=== PATIENT | female | born 1980 | race Caucasian/White ===

== ENCOUNTER 2017-06-17 12:33 | Emergency (ER) | payer SELFPAY ==
[~2017-06-17] VITALS: Ht 160 cm; Wt 63.5 kg
[2017-06-17] MEDS ORDERED: MELOXICAM15 MG PO (12:48)
[2017-06-17] MEDS ORDERED: CYMBALTA60 MG PO ×2 (12:48→13:08)
[2017-06-17] MEDS ORDERED: AMITRIPTYLINE H25 MG PO (12:49)
[2017-06-17] MEDS ORDERED: PROPRANOLOL HCL40 MG PO (12:49)
[2017-06-17] MEDS ORDERED: NEURONTIN300 MG PO (12:49)
== END 2017-06-17 13:08 | disposition home or self-care (01) ==
LOC: ED 12:33
DX: Z76.0 Encounter for issue of repeat prescription (principal); F32.9 Major depressive disorder, single episode, unspecified; G43.909 Migraine, unspecified, not intractable, without status migrainosus; Z98.51 Tubal ligation status; Z98.890 Other specified postprocedural states; Z88.8 Allergy status to other drugs, medicaments and biological substances; Z79.899 Other long term (current) drug therapy
CPT/HCPCS: 99281

== ENCOUNTER 2020-08-29 17:17 | Emergency (ER) | payer SELFPAY ==
[~2020-08-29 17:17] MED LIST: AMITRIPTYLINE H25 MG PO; CYMBALTA60 MG PO; MELOXICAM15 MG PO; NEURONTIN300 MG PO; PROPRANOLOL HCL40 MG PO
[2020-08-29] MEDS ORDERED: CEFPODOXIME PR200 MG PO (19:31)
== END 2020-08-29 19:44 | disposition home or self-care (01) ==
LOC: ED 17:17
DX: N12 Tubulo-interstitial nephritis, not specified as acute or chronic (principal); G43.909 Migraine, unspecified, not intractable, without status migrainosus; Z88.8 Allergy status to other drugs, medicaments and biological substances
CPT/HCPCS: 80053; 81001; 84703; 85025; 96365; 96375; 99283-25; J0696; J1885; J7030

== ENCOUNTER 2021-10-11 13:56 | Emergency (ER) | payer OTHER ==
[~2021-10-11] VITALS: Ht 160 cm; Wt 68.5 kg
[~2021-10-11 13:56] MED LIST changes: +CEFPODOXIME PR200 MG PO
== END 2021-10-11 16:50 | disposition home or self-care (01) ==
LOC: ED 13:56
DX: S43.101A Unspecified dislocation of right acromioclavicular joint, initial encounter (principal); G43.909 Migraine, unspecified, not intractable, without status migrainosus; Z88.8 Allergy status to other drugs, medicaments and biological substances; X50.0XXA Overexertion from strenuous movement or load, initial encounter
CPT/HCPCS: 73030; 99283-25; A9270

== ENCOUNTER 2022-11-08 10:46 | Emergency (ER) | payer OTHER ==
[~2022-11-08] VITALS: Ht 160 cm; Wt 68.5 kg
[2022-11-08] MEDS ORDERED: VENTOLIN HFA18 GM INH (11:15)
[2022-11-08 15:17] VITALS: BP 122/83
== END 2022-11-08 15:17 | disposition home or self-care (01) ==
LOC: ED 10:46
DX: G43.909 Migraine, unspecified, not intractable, without status migrainosus (principal); Z88.8 Allergy status to other drugs, medicaments and biological substances; Z91.048 Other nonmedicinal substance allergy status; Z79.899 Other long term (current) drug therapy
CPT/HCPCS: 96361; 96374; 96375; 99283-25; J1200; J1885; J2765; J3030; J7030

== ENCOUNTER 2024-01-29 15:44 | Emergency (ER) | payer OTHER ==
[~2024-01-29] VITALS: Ht 160 cm; Wt 74.8 kg
[~2024-01-29 15:44] MED LIST changes: +VENTOLIN HFA18 GM INH
[2024-01-29 16:11] LABS: BASOPHILS 0.6 % (0-2); EOSINOPHILS 0.7 % (0-6); HEMATOCRIT 39.5 % (35.0-50.0); HEMOGLOBIN 14.1 g/dL (12.0-18.0); LYMPHOCYTES 28.2 % (24-44); MCH 32.7 (27-36); MCHC 35.6 g/dl (30-36); MCV 91.9 fl (81-99); MONOCYTES 13.5 % (0-12); PLATELET COUNT 158 K/uL (140-440); RDW 13.7 (10.5-15.0)
[2024-01-29] MEDS ORDERED: ATENOLOL25 MG PO (16:11)
[2024-01-29] MEDS ORDERED: VITAMIN D21250 MCG PO (16:11)
[2024-01-29] MEDS ORDERED: AMITRIPTYLINE H50 MG PO (16:11)
[2024-01-29 16:33] LABS: ALBUMIN 3.9 g/dL (3.4-5.0); ALKALINE PHOSPHATASE 76 U/L (46-116); ALT (SGPT) 19 U/L (14-59); ANION GAP 12.4 (7-21); AST (SGOT) 14 U/L (15-37); BILIRUBIN, TOTAL 0.4 ng/dL (0.2-1.0); BUN/CREATININE RATIO 16.66 (6.0-28.6); CALCIUM 8.3 mg/dL (8.5-10.1); CARBON DIOXIDE 25 mmol/L (21-32); CHLORIDE 104 mmol/L (98-107); CREATININE, SERUM 0.84 mg/dL (0.55-1.02); GLOMERULAR FILTRATION RATE,EST 87 mL/min (>60); POTASSIUM 3.4 mmol/L (3.5-5.1); PROTEIN, TOTAL 6.9 g/dL (6.4-8.2); UREA NITROGEN 14 mg/dL (7-18)
[2024-01-29 18:40] VITALS: BP 134/95
--- NOTE | 2024-01-30 13:48 | EKG ---
[facility] [address] [place], [place] [address] Signed Normal sinus rhythm Nonspecific ST and T wave abnormality Abnormal ECG No previous ECGs available Confirmed by Priyanka Roth MD ([id number]) on 01/30/2024 1:47:59 PM Electronically Signed By: PRIYANKA ROTH 01/30/24 1348 PATIENT NAME: CEDRICK JENSEN DARYL Electrocardiogram DATE OF : 76 PHYSICIAN: PRIYANKA ROTH REPORT #: [id number] REPORT IS CONFIDENTIAL AND NOT TO BE RELEASED WITHOUT AUTHORIZATION
== END 2024-01-29 18:40 | disposition home or self-care (01) ==
LOC: ED 15:44
PROVIDERS: Emergency Medicine
DX: R07.9 Chest pain, unspecified (principal); I10 Essential (primary) hypertension; G43.909 Migraine, unspecified, not intractable, without status migrainosus; M79.7 Fibromyalgia; Z88.8 Allergy status to other drugs, medicaments and biological substances; Z91.048 Other nonmedicinal substance allergy status; Z79.899 Other long term (current) drug therapy
CPT/HCPCS: 36415; 71045; 80053; 83880; 84484; 85025; 85379; 93005; 93010; 99285-25

== ENCOUNTER 2024-11-07 16:45 | Emergency (ER) | payer OTHER ==
[~2024-11-07] VITALS: Ht 160 cm; Wt 74.6 kg
[~2024-11-07 16:45] MED LIST changes: +AMITRIPTYLINE H50 MG PO; +ATENOLOL25 MG PO; +VITAMIN D21250 MCG PO
[2024-11-07] MEDS ORDERED: DEXAMETHASONE SOD PHOS 10 MG/ML VIAL IV ONE (19:15)
[2024-11-07] MEDS ORDERED: METHYLPREDNISOLO4 M1 PO (19:18)
[2024-11-07] MEDS ORDERED: FLONASE ALLERG9.9 ML NAS (19:18)
[2024-11-07 20:58] VITALS: BP 135/97
== END 2024-11-07 20:58 | disposition home or self-care (01) ==
LOC: ED 16:45
DX: J06.9 Acute upper respiratory infection, unspecified (principal); J30.9 Allergic rhinitis, unspecified; Z91.09 Other allergy status, other than to drugs and biological substances; Z88.8 Allergy status to other drugs, medicaments and biological substances; Z79.899 Other long term (current) drug therapy
CPT/HCPCS: 71045; 96374; 99283-25; J1100

== ENCOUNTER 2025-02-23 16:57 | Emergency (ER) | payer OTHER ==
[~2025-02-23] VITALS: Ht 160 cm; Wt 71.3 kg
[~2025-02-23 16:57] MED LIST changes: +FLONASE ALLERG9.9 ML NAS; +METHYLPREDNISOLO4 M1 PO
[2025-02-23] MEDS ORDERED: SILVER SULFADIAZINE 400 GM HOME.PACK TOP ONE (19:30)
[2025-02-23] MEDS ORDERED: HYDROCODONE BIT/ACETAMINOPHEN 5/325 MG 1 TAB HOME.PACK PO ONE (19:30)
[2025-02-23] MEDS ORDERED: HYDROCODON-ACE1 EA10 PO (20:01)
[2025-02-23 20:19] VITALS: BP 149/94
== END 2025-02-23 20:18 | disposition home or self-care (01) ==
LOC: ED 16:57
DX: L55.1 Sunburn of second degree (principal); Z88.8 Allergy status to other drugs, medicaments and biological substances; Z79.51 Long term (current) use of inhaled steroids
CPT/HCPCS: A9270